=== PATIENT | male | born 1955 | race Caucasian/White ===

== ENCOUNTER 2019-02-23 12:02 | Outpatient (REF) | payer MEDICAID, SELFPAY ==
[2019-02-23 22:21] LABS: TSH (W/Ref FT4) 3.01 uIU/mL (0.358-3.74)
== END 2019-02-23 12:22 ==
LOC: NCHCN 12:02
PROVIDERS: PCP Internal Medicine; Visit Provider Internal Medicine
DX: R53.83 Other fatigue (principal)
CPT/HCPCS: 84443

== ENCOUNTER 2019-06-01 10:43 | Outpatient (REF) | payer MEDICAID, SELFPAY ==
[2019-06-01 22:05] LABS: HGB 11.9 g/dL (13.5-17.5); Mean Corp. HGB Concentration 31.3 g/dL (32.0-36.0); Mean Corpuscular Hemoglobin 25.9 pg (27.0-33.0); Mean Corpuscular Volume 82.6 fL (80-95); Mean Platelet Volume 9.4 fL (8.0-11.0); Platelet Count 422 x1000/uL (130-400); RBC Distribution Width 18.5 % (11.8-14.1); White Blood Cell Count 10.81 k/cumm (4.4-10.8)
[2019-06-01 22:36] LABS: BUN 33 mg/dL (7-18); CREATININE 2.07 mg/dL (0.70-1.30); Calcium 9.2 mg/dL (8.5-10.1); Chloride 103 mmol/L (98-107); Estimated GFR 32.59 (mL/min/1.73m2); Glucose 125 mg/dL (70-100); NT-proBNP 1366 pg/mL; Potassium 4.5 mmol/L (3.5-5.1); Sodium 139 mmol/L (136-145)
[2019-06-02 10:44] LABS: Iron 41 ug/dL (50-175); Total Iron Binding Capacity 286 ug/dL (250-450); Transferrin Sat 14 % (20-55)
[2019-06-02 10:59] LABS: Ferritin 103 ng/mL (8-388)
== END 2019-06-01 11:03 ==
LOC: NCHCO 10:43
PROVIDERS: PCP Internal Medicine; Visit Provider Internal Medicine
DX: R06.00 Dyspnea, unspecified (principal)
CPT/HCPCS: 80048; 85027; 82728; 83540; 83550; 83880

== ENCOUNTER 2019-06-06 21:08 | Outpatient (REF) | payer MEDICAID, SELFPAY ==
[2019-06-06 21:08] LABS: Anion Gap 11.2 mmol/L (3-11); BUN 35 mg/dL (7-18); CO2 25.8 mmol/L (21.0-32.0); Calcium 9.1 mg/dL (8.5-10.1); Chloride 103 mmol/L (98-107); Estimated GFR 32.06 (mL/min/1.73m2); Glucose 171 mg/dL (70-100); Potassium 4.2 mmol/L (3.5-5.1); Sodium 140 mmol/L (136-145)
== END 2019-06-06 21:28 ==
LOC: NCHCN 21:08
PROVIDERS: PCP Internal Medicine; Visit Provider Internal Medicine
DX: N18.3 Chronic kidney disease, stage 3 (moderate) (principal)
CPT/HCPCS: 80048

== ENCOUNTER 2019-06-12 11:58 | Outpatient (REF) | payer MEDICAID, SELFPAY ==
[2019-06-12 21:37] LABS: Anion Gap 9.3 mmol/L (3-11); BUN 47 mg/dL (7-18); CO2 28.7 mmol/L (21.0-32.0); CREATININE 2.52 mg/dL (0.70-1.30); Calcium 8.9 mg/dL (8.5-10.1); Chloride 100 mmol/L (98-107); Estimated GFR 25.97 (mL/min/1.73m2); Glucose 184 mg/dL (70-100); Potassium 4.2 mmol/L (3.5-5.1); Sodium 138 mmol/L (136-145)
== END 2019-06-12 12:18 ==
LOC: NCHCN 11:58
PROVIDERS: PCP Internal Medicine; Visit Provider Internal Medicine
DX: N18.3 Chronic kidney disease, stage 3 (moderate) (principal)
CPT/HCPCS: 80048

== ENCOUNTER 2019-06-22 14:13 | Outpatient (REF) | payer MEDICAID, SELFPAY ==
[2019-06-22 21:18] LABS: Anion Gap 11.4 mmol/L (3-11); BUN 46 mg/dL (7-18); CO2 24.6 mmol/L (21.0-32.0); CREATININE 2.71 mg/dL (0.70-1.30); Calcium 8.9 mg/dL (8.5-10.1); Chloride 103 mmol/L (98-107); Estimated GFR 23.89 (mL/min/1.73m2); Glucose 214 mg/dL (70-100); Potassium 4.2 mmol/L (3.5-5.1); Sodium 139 mmol/L (136-145)
== END 2019-06-22 14:33 ==
LOC: NCHCN 14:13
PROVIDERS: PCP Internal Medicine; Visit Provider Internal Medicine
DX: I50.9 Heart failure, unspecified (principal)
CPT/HCPCS: 80048

== ENCOUNTER 2019-07-13 15:32 | Outpatient (REF) | payer MEDICAID, SELFPAY ==
[2019-07-13 21:23] LABS: Anion Gap 11.5 mmol/L (3-11); BUN 51 mg/dL (7-18); CO2 25.5 mmol/L (21.0-32.0); CREATININE 2.51 mg/dL (0.70-1.30); Calcium 8.5 mg/dL (8.5-10.1); Chloride 103 mmol/L (98-107); Estimated GFR 26.09 (mL/min/1.73m2); Glucose 134 mg/dL (70-100); Potassium 4.2 mmol/L (3.5-5.1); Sodium 140 mmol/L (136-145)
== END 2019-07-13 15:52 ==
LOC: NCHCN 15:32
PROVIDERS: PCP Internal Medicine; Visit Provider Internal Medicine
DX: I10 Essential (primary) hypertension (principal)
CPT/HCPCS: 80048

== ENCOUNTER 2019-07-17 21:06 | Outpatient (REF) | payer MEDICAID, SELFPAY ==
[2019-07-17 21:31] LABS: NT-proBNP 1197 pg/mL
== END 2019-07-17 21:26 ==
LOC: NCHCN 21:06
PROVIDERS: PCP Internal Medicine; Visit Provider Internal Medicine
DX: I50.9 Heart failure, unspecified (principal)
CPT/HCPCS: 83880

== ENCOUNTER 2019-07-18 14:17 | Outpatient (REF) | payer MEDICAID, SELFPAY ==
[2019-07-18 22:08] LABS: Abs Immature Grans 0.04 k/cumm (0.0-0.09); Absolute Basophil Count 0.03 k/cumm (0.0-0.2); Absolute Lymphocyte Count 2.19 k/cumm (1.2-3.4); Absolute Monocyte Count 1.15 k/cumm (0.11-0.7); Basophils % 0.3; Eosinophils % 2.8; HCT 39.2 % (40.0-50.0); HGB 12.1 g/dL (13.5-17.5); Immature Grans % 0.4; Lymphocytes % 20.3; Mean Corp. HGB Concentration 30.9 g/dL (32.0-36.0); Mean Corpuscular Hemoglobin 24.9 pg (27.0-33.0); Mean Corpuscular Volume 80.8 fL (80-95); Mean Platelet Volume 10.1 fL (8.0-11.0); Monocytes % 10.6; Neutrophils % 65.6; Platelet Count 386 x1000/uL (130-400); RBC 4.85 m/cumm (4.50-6.00); RBC Distribution Width 18.7 % (11.8-14.1); White Blood Cell Count 10.81 k/cumm (4.4-10.8)
[2019-07-18 22:09] LABS: Absolute Neutrophil Count 7.09 k/cumm (1.2-6.7)
== END 2019-07-18 14:37 ==
LOC: NCHCN 14:17
PROVIDERS: PCP Internal Medicine; Visit Provider Internal Medicine
DX: R06.09 Other forms of dyspnea (principal); I48.91 Unspecified atrial fibrillation; I50.9 Heart failure, unspecified; H60.501 Unspecified acute noninfective otitis externa, right ear
CPT/HCPCS: 85025

== ENCOUNTER 2019-08-18 13:31 | Outpatient (REF) | payer MEDICAID, SELFPAY ==
[2019-08-18 20:43] LABS: HCT 37.9 % (40.0-50.0); HGB 11.7 g/dL (13.5-17.5); Mean Corp. HGB Concentration 30.9 g/dL (32.0-36.0); Mean Corpuscular Hemoglobin 24.7 pg (27.0-33.0); Mean Platelet Volume 9.7 fL (8.0-11.0); Platelet Count 447 x1000/uL (130-400); RBC 4.74 m/cumm (4.50-6.00); RBC Distribution Width 18.7 % (11.8-14.1); White Blood Cell Count 11.82 k/cumm (4.4-10.8)
[2019-08-18 21:19] LABS: Anion Gap 11.9 mmol/L (3-11); BUN 46 mg/dL (7-18); CO2 25.1 mmol/L (21.0-32.0); CREATININE 2.16 mg/dL (0.70-1.30); Calcium 9.1 mg/dL (8.5-10.1); Chloride 102 mmol/L (98-107); Estimated GFR 31.03 (mL/min/1.73m2); Ferritin 57 ng/mL (26-388); Glucose 171 mg/dL (74-106); Potassium 4.3 mmol/L (3.5-5.1); Sodium 139 mmol/L (136-145); Vitamin B12 318 pg/mL (193-986)
== END 2019-08-18 13:51 ==
LOC: NCHCN 13:31
PROVIDERS: PCP Internal Medicine; Visit Provider Internal Medicine
DX: R06.09 Other forms of dyspnea (principal); I10 Essential (primary) hypertension; R53.83 Other fatigue; E11.9 Type 2 diabetes mellitus without complications
CPT/HCPCS: 80048; 85027; 82607; 82728

== ENCOUNTER 2019-09-07 17:10 | Outpatient (REF) | payer MEDICAID, SELFPAY ==
[2019-09-07 22:00] LABS: Anion Gap 12.7 mmol/L (3-11); BUN 50 mg/dL (7-18); CO2 25.3 mmol/L (21.0-32.0); CREATININE 2.31 mg/dL (0.70-1.30); Calcium 8.6 mg/dL (8.5-10.1); Chloride 105 mmol/L (98-107); Estimated GFR 28.72 (mL/min/1.73m2); Glucose 154 mg/dL (74-106); NT-proBNP 2268 pg/mL (<300); Potassium 4.6 mmol/L (3.5-5.1); Sodium 143 mmol/L (136-145)
== END 2019-09-07 17:30 ==
LOC: NCHCN 17:10
PROVIDERS: PCP Internal Medicine; Visit Provider Internal Medicine
DX: I50.9 Heart failure, unspecified (principal); N18.3 Chronic kidney disease, stage 3 (moderate)
CPT/HCPCS: 80048; 83880

== ENCOUNTER 2019-09-11 22:37 | Outpatient (REF) | payer MEDICAID, SELFPAY ==
[2019-09-11 23:05] LABS: Anion Gap 12.9 mmol/L (3-11); BUN 58 mg/dL (7-18); CO2 25.1 mmol/L (21.0-32.0); CREATININE 2.65 mg/dL (0.70-1.30); Calcium 9.3 mg/dL (8.5-10.1); Chloride 107 mmol/L (98-107); Estimated GFR 24.51 (mL/min/1.73m2); Glucose 98 mg/dL (74-106); Sodium 145 mmol/L (136-145)
== END 2019-09-11 22:57 ==
LOC: LBN 22:37
PROVIDERS: PCP Internal Medicine; Visit Provider Internal Medicine
DX: E11.9 Type 2 diabetes mellitus without complications (principal); R06.09 Other forms of dyspnea; N18.3 Chronic kidney disease, stage 3 (moderate); I50.9 Heart failure, unspecified
CPT/HCPCS: 80048

== ENCOUNTER 2019-09-15 12:21 | Outpatient (REF) | payer MEDICAID, SELFPAY ==
[2019-09-15 21:21] LABS: NT-proBNP 1785 pg/mL (<300)
== END 2019-09-15 12:41 ==
LOC: NCHCN 12:21
PROVIDERS: PCP Internal Medicine; Visit Provider Internal Medicine
DX: I50.9 Heart failure, unspecified (principal)
CPT/HCPCS: 83880